=== PATIENT | female | born 1965 | race Caucasian/White ===

== ENCOUNTER 2021-12-12 07:08 | Outpatient (CLI) | payer OTHER ==
[~2021-12-12 07:08] MED LIST: NAPROXEN SODIU550 M1 PO; SYNTHROID88 MCG PO
== END 2021-12-12 07:24 | disposition home or self-care (01) ==
LOC: SONOGRAMA 07:08
PROVIDERS: ATTEND Otolaryngology
DX: K11.8 Other diseases of salivary glands (principal)

== ENCOUNTER 2024-11-20 05:42 | Day surgery (SDC) | payer OTHER ==
[2024-11-17 11:14] VITALS: BP 137/77
[~2024-11-20] VITALS: Ht 152.4 cm; Wt 60.3 kg
[~2024-11-20 05:42] MED LIST changes: +COZAAR25 MG PO; +TOPROL XL25 M1 PO
[2024-11-20] MEDS ORDERED: CHLORHEXIDINE GLUCONATE 120 ML BOTTLE TOP ONE (09:15)
[2024-11-20] MEDS ORDERED: BUPIVACAINE HCL/PF 0.25% 30ML VIAL InF ONE (09:15)
[2024-11-20] MEDS ORDERED: CEFAZOLIN SODIUM 1,000 MG VIAL IV ONE (09:15)
[2024-11-20] MEDS ORDERED: CLINDAMYCIN PHOSPHATE 150 MG/ML (900mg) IV ONE (09:15)
[2024-11-20] MEDS ORDERED: MORPHINE SULFATE 4 MG/ML VIAL IV ONE ×2 (12:35→13:05)
== END 2024-11-20 14:55 | disposition home or self-care (01) ==
LOC: CIR.AMB 05:42
PROVIDERS: ATTEND Surgery
DX: C50.411 Malignant neoplasm of upper-outer quadrant of right female breast (principal); Z91.041 Radiographic dye allergy status; Z91.013 Allergy to seafood; I10 Essential (primary) hypertension; E78.5 Hyperlipidemia, unspecified; E03.8 Other specified hypothyroidism; R59.0 Localized enlarged lymph nodes

== ENCOUNTER 2025-01-29 05:08 | Day surgery (SDC) | payer OTHER ==
[2025-01-21 10:41] VITALS: BP 142/89
[~2025-01-29] VITALS: Ht 152.4 cm; Wt 61.7 kg
[~2025-01-29 05:08] MED LIST changes: +ANASTROZOLE1 MG PO; +MORPHINE SULFATE 4 MG/ML VIAL IV PRN; +ONDANSETRON HCL 2 MG/ML VIAL IV PRN; +VYTORIN 10-201 EACH PO
[2025-01-29] MEDS ORDERED: CLINDAMYCIN PHOSPHATE 150 MG/ML (900mg) ONE (07:27)
[2025-01-29] MEDS ORDERED: CHLORHEXIDINE GLUCONATE 120 ML BOTTLE TOP ONE (07:27)
[2025-01-29] MEDS ORDERED: CEFAZOLIN SODIUM 1,000 MG VIAL ONE (08:18)
[2025-01-29] MEDS ORDERED: GENTAMICIN SULFATE 40 MG/ML VIAL ONE (08:18)
[2025-01-29] MEDS ORDERED: MORPHINE SULFATE 4 MG/ML VIAL IV PRN (10:00)
[2025-01-29] MEDS ORDERED: ONDANSETRON HCL 2 MG/ML VIAL IV PRN (10:00)
== END 2025-01-29 11:15 | disposition home or self-care (01) ==
LOC: CIR.AMB 05:08
PROVIDERS: ATTEND Plastic Surgery
DX: C50.411 Malignant neoplasm of upper-outer quadrant of right female breast (principal); N65.1 Disproportion of reconstructed breast; Z90.13 Acquired absence of bilateral breasts and nipples; Z85.3 Personal history of malignant neoplasm of breast; Z91.013 Allergy to seafood; Z91.041 Radiographic dye allergy status; I10 Essential (primary) hypertension; E03.8 Other specified hypothyroidism; J32.9 Chronic sinusitis, unspecified